=== PATIENT | male | born 1955 | race Caucasian/White ===

== ENCOUNTER → 2017-08-11 | Outpatient (CLI) | payer BC ==
[~2017-08-11] MED LIST: ASPI-621 PO; ATOR20TA PO; ENAL20TA PO; GABA300C10 PO; MELO15TA24 PO; MELO7.5T31 PO; MULT-717 PO; NAPR375T5 PO; OMEP-110 PO; OXYC5CAP2 PO; SERT50TA5 PO; TRAM50TA2 PO
[2017-08-11 15:20] LABS: HEMATOCRIT 45.2 % (39.2-51.8); HEMOGLOBIN 15.4 g/dL (13.7-18.0); WHITE BLOOD COUNT 8.9 x10^3/uL (3.4-10)
[2017-08-11 15:32] LABS: BLOOD UREA NITROGEN 22 mg/dL (7-18)
[2017-08-11 15:35] LABS: ASPARTATE AMINO TRANSFERASE 12 U/L (15-37)
== END | disposition home or self-care (01) ==
LOC: STAR 14:16
PROVIDERS: ATTEND Orthopaedic Surgery
DX: Z01.818 Encounter for other preprocedural examination (principal); M16.11 Unilateral primary osteoarthritis, right hip
CPT/HCPCS: 36415; 80053; 81003; 85025; 87081; 87147; 93005

== ENCOUNTER 2017-08-17 07:55 | Inpatient (IN) | payer BC ==
[2017-08-11 14:44] VITALS: BP 161/93
[~2017-08-17] VITALS: Ht 172.7 cm; Wt 93.6 kg
[~2017-08-17 07:55] MED LIST changes: +EPINEPHRINE 1 MG/ML, 1ML ONE; -GABA300C10 PO; +KETOROLAC 60 MG/2 ML ONE; +ROPIvacaine/PF 0.2%, 20 ML ONE; +SODIUM CHLORIDE 0.9% 50 ML ONE; +TRANEXAMIC ACID 100 MG/ML, 10ML ONE
[2017-08-17] MEDS ORDERED: LACTATED RINGERS 1,000 ML IV SCH (08:55)
[2017-08-17] MEDS ORDERED: TRAM50TA2 PO (08:58)
[2017-08-17] MEDS ORDERED: GABA300C10 PO (08:58)
[2017-08-17] MEDS ORDERED: LIDOCAINE 1%, 2ML SQ PRN (09:00)
[2017-08-17] MEDS ORDERED: MIDAZOLAM 1 MG/ML, 2ML ONE (10:17)
[2017-08-17] MEDS ORDERED: FENTANYL PF 100 MCG/2ML ONE (10:17)
[2017-08-17] MEDS ORDERED: LABETALOL 5MG/ML, 20ML IV PRN (12:00)
[2017-08-17] MEDS ORDERED: METOPROLOL 1 MG/ML, 5ML IV PRN (12:00)
[2017-08-17] MEDS ORDERED: ALBUTEROL SULFATE 2.5 MG/3 ML NPPB PRN (12:00)
[2017-08-17] MEDS ORDERED: DIAZEPAM 5 MG/ML, 2ML IVPush PRN (12:00)
[2017-08-17] MEDS ORDERED: ACETAMINOPHEN 325 MG TABLET PO PRN (12:00)
[2017-08-17] MEDS ORDERED: FENTANYL PF 100 MCG/2ML IV PRN (12:00)
[2017-08-17] MEDS ORDERED: hydrALAzine 20 MG/ML, 1ML IV PRN (12:00)
[2017-08-17] MEDS ORDERED: MEPERIDINE/PF 25MG/0.5ML IVPush PRN (12:00)
[2017-08-17] MEDS ORDERED: MIDAZOLAM 1 MG/ML, 2ML IV PRN (12:00)
[2017-08-17] MEDS ORDERED: HYDROmorphone 1 MG/ML, 1ML IV PRN ×2 (12:00→13:00)
[2017-08-17] MEDS ORDERED: EPHEDRINE 50 MG/ML, 1ML IVPush PRN (12:00)
[2017-08-17] MEDS ORDERED: ONDANSETRON 2MG/ML, 2ML IVPush PRN (12:00)
[2017-08-17] MEDS ORDERED: PROMETHAZINE 25 MG/ML, 1ML IV PRN (12:00)
[2017-08-17] MEDS ORDERED: OXYcodone 5 MG/5 ML ORAL.SOL UDC PO PRN (12:00)
[2017-08-17] MEDS ORDERED: HYDROcodone/APAP 7.5-325MG/15ML UDC PO PRN (12:00)
[2017-08-17] MEDS ORDERED: PROPOFOL 10 MG/ML, 20ML ONE (12:33)
[2017-08-17] MEDS ORDERED: CEFAZOLIN 1,000 MG ONE (12:33)
[2017-08-17] MEDS ORDERED: ONDANSETRON 2MG/ML, 2ML ONE (12:33)
[2017-08-17] MEDS ORDERED: DEXAMETHASONE 4 MG/ML, 1ML ONE (12:33)
[2017-08-17] MEDS ORDERED: SENNA/DOCUSATE TABLET PO PRN (13:00)
[2017-08-17] MEDS ORDERED: ALUMINUM/MAG/SIMETHICONE 30 ML UDC PO PRN (13:00)
[2017-08-17] MEDS ORDERED: ONDANSETRON 4 MG TABLET PO PRN (13:00)
[2017-08-17] MEDS ORDERED: ACETAMINOPHEN 650 MG/20.3 ML UDC PO PRN (13:00)
[2017-08-17] MEDS ORDERED: DIPHENHYDRAMINE 50 MG CAPSULE PO PRN (13:00)
[2017-08-17] MEDS ORDERED: PROMETHAZINE 25 MG/ML, 1ML IM PRN (13:00)
[2017-08-17] MEDS ORDERED: ONDANSETRON 2MG/ML, 2ML IV PRN (13:00)
[2017-08-17] MEDS: HYDROcodone/APAP 10/325 MG TABLET PO SCH ×3 (13:00→22:07)
[2017-08-17] MEDS ORDERED: SCOPOLAMINE PATCH, 1MG PATCH.TD72 TD PRN (13:00)
[2017-08-17] MEDS ORDERED: BISACODYL 10 MG SUPP PR PRN (13:00)
[2017-08-17] MEDS ORDERED: DIAZEPAM 5 MG TABLET PO PRN (13:00)
[2017-08-17] MEDS ORDERED: ZOLPIDEM 5MG TABLET PO PRN (13:00)
[2017-08-17] MEDS ORDERED: MAGNESIUM HYDROXIDE 8%, 30ML UDC PO PRN (13:00)
[2017-08-17] MEDS ORDERED: PROMETHAZINE 12.5 MG SUPP PR PRN (13:00)
[2017-08-17] MEDS ORDERED: HYDROcodone/APAP 10/325 MG TABLET PO PRN (13:00)
[2017-08-17] MEDS ORDERED: TRANEXAMIC ACID 1,000 MG in SODIUM CHLORIDE 0.9% 100 ML IVPB ONE (13:15)
[2017-08-17] MEDS ORDERED: ACETAMINOPHEN 650 MG/20.3 ML UDC ONE (13:29)
[2017-08-17] MEDS ORDERED: OXYcodone 5 MG/5 ML ORAL.SOL UDC ONE (13:29)
[2017-08-17 14:25] VITALS: BP 129/80
[2017-08-17] MEDS: D5%-0.45% NACL 1,000 ML IV SCH ×2 (15:04→20:45)
[2017-08-17] MEDS: TAMSULOSIN 0.4 MG CAP.ER.24H PO SCH (16:20)
[2017-08-17] MEDS: CEFAZOLIN PMX 2GM/50ML 50 ML IVPB SCH (18:18)
[2017-08-17 20:37] VITALS: BP 137/71
[2017-08-17] MEDS ORDERED: ATORVASTATIN 20 MG TABLET PO SCH (21:00)
[2017-08-17] MEDS ORDERED: SERTRALINE 50MG TABLET PO SCH (21:00)
[2017-08-17] MEDS: ASPIRIN 81 MG TABLET EC PO SCH (22:07)
[2017-08-17] MEDS: DOCUSATE 100 MG CAPSULE PO SCH (22:07)
[2017-08-18 00:59] VITALS: BP 127/71
[2017-08-18] MEDS: CEFAZOLIN PMX 2GM/50ML 50 ML IVPB SCH (02:03)
[2017-08-18] MEDS: HYDROcodone/APAP 10/325 MG TABLET PO SCH ×3 (02:07→11:04)
[2017-08-18 03:52] VITALS: BP 121/74
[2017-08-18] MEDS: D5%-0.45% NACL 1,000 ML IV SCH ×2 (03:53→12:23)
[2017-08-18 05:47] LABS: HEMATOCRIT 35.3 % (39.2-51.8)
[2017-08-18] MEDS: ASPIRIN 81 MG TABLET EC PO SCH (05:48)
[2017-08-18] MEDS ORDERED: DEXAMETHASONE 4 MG/ML, 1ML IVPush SCH (06:00)
[2017-08-18 07:39] VITALS: BP 126/78
[2017-08-18] MEDS: TAMSULOSIN 0.4 MG CAP.ER.24H PO SCH (08:43)
[2017-08-18] MEDS: DOCUSATE 100 MG CAPSULE PO SCH (08:45)
[2017-08-18] MEDS ORDERED: MULTIVITAMINS/MINERALS TABLET PO SCH (09:00)
[2017-08-18] MEDS ORDERED: OMEPRAZOLE 20 MG CAPSULE.DR PO SCH (09:00)
[2017-08-18] MEDS ORDERED: ENALAPRIL 20MG TABLET PO SCH (09:00)
[2017-08-18] MEDS ORDERED: KETOROLAC 30 MG/1 ML IV SCH (13:00)
[2017-08-18 13:19] VITALS: BP 123/67
[2017-08-18] MEDS ORDERED: FLU VACC QS2017-18 (36MOS+) UP/PF 0.5 ML IM-VACC ONE (14:00)
[2017-08-18 14:21] VITALS: BP 110/61
[2017-08-18 16:00] VITALS: BP 110/61
[2017-08-18] MEDS ORDERED: HYDR-3307 PO (16:29)
== END 2017-08-18 16:41 | disposition home or self-care (01) | DRG 470 ==
LOC: ORIP 07:55 → 4NOR 14:25 → DCLOUNGE 08-18 16:20
PROVIDERS: ADMIT Orthopaedic Surgery; ATTEND Orthopaedic Surgery
PROC: 0SR904Z Replacement of Right Hip Joint with Ceramic on Polyethylene Synthetic Substitute, Open Approach (ICD-10-PCS; principal; 2017-08-17 11:00)
DX: M16.11 Unilateral primary osteoarthritis, right hip (principal); I10 Essential (primary) hypertension; E78.5 Hyperlipidemia, unspecified; K21.9 Gastro-esophageal reflux disease without esophagitis
CPT/HCPCS: 36415; 72170; 85014; 85018; 86850; 86900; 90686; C1713; J0171; J0690; J1100; J1885; J2250; J2405; J2704; J2795; J3010; J3490; C1776; J7120